=== PATIENT | male | born 1970 | race Caucasian/White ===

== ENCOUNTER → 2024-08-11 | Outpatient (CLI) | payer MEDICARE ==
[~2024-08-11] MED LIST: ALPR1TAB10 PO; BUSP10TA3 PO; CETI10TA57 PO; CYCL-309 PO; DAPS100T PO; DIVA-76 PO; DOCU100C33 PO; DRON10CA8 PO; LAMO100T66 PO; LITH300T3 PO; LITH600C PO; MEMA5TAB16 PO; METF-444 PO; MODA200T48 PO; PHEN-615 PO; PREG50CA64 PO; TAMS-1 PO; TRAZ-187 PO; ZALE10CA26 PO
[2024-08-11 14:50] LABS: CREATININE 0.8 mg/dL (0.5-1.3)
== END | disposition home or self-care (01) ==
LOC: LAB 13:32
PROVIDERS: ATTEND Internal Medicine Gastroenterology
DX: R10.30 Lower abdominal pain, unspecified (principal)
CPT/HCPCS: 36415; 82565; 84520

== ENCOUNTER → 2024-08-24 | Outpatient (CLI) | payer MEDICARE ==
[~2024-08-24] MED LIST changes: +IOHEXOL-350 75 ML VIAL IV ONE
--- NOTE | 2024-08-24 13:06 | HMCIMG ---
CT ABDOMEN/PELVIS W/WO CONTRAS REASON: LOWER ABDO PAIN COMPARISON: 06/08/2016. TECHNIQUE: Images are obtained from lung bases to symphysis pubis before and after IV contrast, 75 cc Omnipaque [id number]. Oral contrast was demonstrated as well. FINDINGS: Lung bases are clear. There are no focal liver lesions. There are normal-appearing kidneys.. Spleen and pancreas appear unremarkable. The gallbladder appears normal as well. Bowel loops appear unremarkable. This includes normal appearance of the appendix There is no evidence of free fluid or intraperitoneal air. There are no focal fluid collections. Aorta and retroperitoneum appear normal as do pelvic soft tissue structures. The anterior abdominal wall is intact. Osseous structures appear unremarkable. IMPRESSION: 1. Negative postcontrast CT abdomen and pelvis. CT was performed with one or more following dose reduction techniques: automated exposure control, adjustment of the mA and kv according to patient's size, or use of a iterative reconstruction technique.
== END | disposition home or self-care (01) ==
LOC: RAH 09:36
PROVIDERS: ATTEND Internal Medicine Gastroenterology
DX: R10.30 Lower abdominal pain, unspecified (principal)
CPT/HCPCS: 74178; Q9967

== ENCOUNTER → 2025-02-17 | Outpatient (CLI) | payer MEDICARE ==
[~2025-02-17] MED LIST changes: +DRON10CA PO; -DRON10CA8 PO; +IBUP-2077 PO; -IOHEXOL-350 75 ML VIAL IV ONE; -PHEN-615 PO; +PHEN37.599 PO; -TAMS-1 PO; +TAMS-55 PO
--- NOTE | 2025-02-17 14:07 | HMCIMG ---
CT ABDOMEN/PELVIS W/O CONTRAST REASON: LEFT INGUINAL PAIN, Other specified disorders of the male genital organs COMPARISON: None. FINDINGS: Lung bases are clear. There are no focal liver lesions. There are normal-appearing kidneys.. The small nonobstructing calculus in the midpole the right kidney. Spleen and pancreas appear unremarkable. The gallbladder appears normal as well. Bowel loops appear unremarkable. There are occasional diverticulosis with no evidence of diverticulitis.. This includes normal appearance of the appendix There is no evidence of free fluid or intraperitoneal air. There are no focal fluid collections. Aorta and retroperitoneum appear normal as do pelvic soft tissue structures. The anterior abdominal wall is intact. Osseous structures appear unremarkable. The prostate and seminal vesicle appears to be normal with no mass or free fluid seen.. There is no evidence of any inguinal hernia or mass identified. IMPRESSION: 1. Negative noncontrast CT abdomen and pelvis. 2. Scattered diverticulosis with no evidence of diverticulitis. CT was performed with one or more following dose reduction techniques: automated exposure control, adjustment of the mA and kv according to patient's size, or use of a iterative reconstruction technique.
== END | disposition home or self-care (01) ==
LOC: RAH 12:18
PROVIDERS: ATTEND Family Medicine
DX: N20.0 Calculus of kidney (principal); K57.90 Diverticulosis of intestine, part unspecified, without perforation or abscess without bleeding; N50.89 Other specified disorders of the male genital organs
CPT/HCPCS: 74176

== ENCOUNTER 2025-02-18 16:56 | Emergency (ER) | payer MEDICARE, MEDICAID ==
[~2025-02-18] VITALS: Ht 180.3 cm; Wt 84.9 kg
[~2025-02-18 16:56] MED LIST changes: -IBUP-2077 PO
--- NOTE | 2025-02-18 17:06 | ERN ---
ED Note History of Present Illness Stated Complaint: TESTICULAR PAIN Chief Complaint: Testicular Injury/Pain Time Seen by MD: 16:59 Dictation: PATIENT IS A 54-YEAR-OLD MALE COMING IN COMPLAINTS OF WORSENING LEFT TESTICULAR PAIN TENDERNESS FOR ONE WEEK. NO FEVER NO CHILLS NO NAUSEA VOMITING. STATES HE SAW HIS PRIMARY CARE DOCTOR ON THURSDAY WHO SENT HIM FOR A CAT SCAN HOWEVER THEY WERE NOT HAVE THE RESULTS UNTIL NEXT WEEK AND HE GOT CONCERNED BECAUSE THE PAIN IS GETTING WORSE. HE DENIES ANY DISCHARGE NO CHANGE IN URINATION. Allergies: Coded Allergies: No Known Drug Allergies (Unverified Allergy, Unknown, 12/22/15) Home Meds Reported Medications Zaleplon (Zaleplon) 10 Mg Capsule, 10 MG PO HS, CAP 02/08/24 Trazodone HCl (Trazodone HCl) 100 Mg Tablet, 100 MG PO HS, TAB 02/08/24 Tamsulosin HCl (Flomax) 0.4 Mg Cap.er.24h, 0.4 MG PO DAILY, CAPSULE.DR 02/08/24 Pregabalin (Pregabalin) 50 Mg Capsule, 50 MG PO A0ONAPT, CAP 02/08/24 Phentermine HCl (Phentermine HCl) 37.5 Mg Capsule, 37.5 MG PO QODAY, CAP 02/08/24 Modafinil (Modafinil) 200 Mg Tablet, 200 MG PO DAILY, TAB 02/08/24 Metformin HCl (Metformin HCl) 500 Mg Tablet, 500 MG PO BID, TAB 02/08/24 Memantine HCl (Memantine HCl) 5 Mg Tablet, 5 MG PO BID, TAB 02/08/24 Rotonda Carbonate (Rotonda Carbonate) 300 Mg Tablet.er, 300 MG PO HS, TAB 02/08/24 Rotonda Carbonate (Rotonda Carbonate) 600 Mg Capsule, 600 MG PO AM, CAP 02/08/24 Lamotrigine (Lamotrigine) 100 Mg Tab.er.24, 100 MG PO QODAY 02/08/24 Dronabinol (Dronabinol) 10 Mg Capsule, 10 MG PO BID, CAP 24 Docusate Sodium (Docusate Sodium) 100 Mg Capsule, 100 MG PO BID, CAP 24 Divalproex Sodium (Divalproex Sodium) 250 Mg Tablet.dr, 250 MG PO BID, TAB 7/15/24 Dapsone (Dapsone) 100 Mg Tablet, 100 MG PO DAILY, TAB 02/08/24 Cyclobenzaprine HCl (Cyclobenzaprine HCl) 10 Mg Tablet, 10 MG PO DAILY, TAB 02/08/24 Cetirizine HCl (Cetirizine HCl) 10 Mg Tablet, 10 MG PO DAILY, TAB 02/08/24 Buspirone HCl (Buspirone HCl) 10 Mg Tablet, 20 MG PO AMNOON, TAB 02/08/24 Buspirone HCl (Buspirone HCl) 10 Mg Tablet, 10 MG PO HS, TAB 02/08/24 Alprazolam (Alprazolam ER) 1 Mg Tab.er.24h, 1 MG PO TID, TAB 12/23/15 Past Medical History Past Medical History: HIV Surgical History: None RN Note Reviewed/Agreed w/PFSH: Yes Review of System Dictation CONSTITUTIONAL: NEGATIVE EXCEPT FOR HPI HEAD/FACE: NEGATIVE EXCEPT FOR HPI EENT: NEGATIVE EXCEPT FOR HPI RESPIRATORY: NEGATIVE EXCEPT FOR HPI GASTROINTESTINAL/ABDOMINAL: NEGATIVE EXCEPT FOR HPI GENITOURINARY: NEGATIVE EXCEPT FOR HPI LEFT TESTICULAR PAIN SWELLING FOR ONE WEEK MUSCULOSKELETAL: NEGATIVE EXCEPT FOR HPI INTEGUMENTARY: NEGATIVE EXCEPT FOR HPI NEUROLOGICAL/PSYCH: NEGATIVE EXCEPT FOR HPI HEMATOLOGIC/LYMPHATIC: NEGATIVE EXCEPT FOR HPI ALL SYSTEMS NEGATIVE, EXCEPT NOTED ABOVE. 13 POINT REVIEW OF SYSTEMS ASSESSED AND ALL NEGATIVE EXCEPT FOR ABOVE. Initial Vital Sign VS Vital Signs Date Time Temp Pulse Resp B/P (MAP) Pulse Ox O2 Delivery O2 Flow Rate FiO2 02/18/25 16:58 98.1 77 18 146/91 98 Room Air 0 02/18/25 17:02 21 Physical Exam Dictation VITAL SIGNS REVIEWED GENERAL APPEARANCE: ALERT, ORIENTED X 3, MILD ACUTE DISTRESS, WELL DEVELOPED, NOURISHED. HEAD AND FACE: NON-TRAUMATIC. EYES: PERRL, PINK CONJUNCTIVAS, EYELID NO TRAUMA, ANTERIOR CHAMBER WITH ARCUS SENILIS. EARS: PINNAS INTACT AND NO SIGNS OF TRAUMA OR ERYTHEMA EAR CANALS CLEAR AND NO DISCHARGE TM NO ERYTHEMA NOSE: NO DISCHARGE, NO BLEEDING. OROPHARYNX: MOUTH NORMAL, TONGUE PINK, PHARYNX CLEAR,NO ERYTHEMA, TONSILS NO EXUDATES, NO ABSCESSES NOTED, MUCOUS MEMBRANE MOIST NECK: SUPPLE, NON-TENDER, NO THYROMEGALY, NO MASSES, NO JVD, NO BRUITS BREAST:DEFERRED CHEST:NO TENDERNESS, NO CREPITUS, NO PARADOXICAL MOVEMENT, NO RETRACTIONS LUNGS:CLEAR, WELL-VENTILATED, SYMMETRIC, NO RALES, NO WHEEZING, NO RHONCHI, NO STRIDOR, GOOD BREATH SOUNDS BILATERALLY HEART: REGULAR RATE, REGULAR RHYTHM, NO MURMUR, NO GALLOPS VASCULAR: NO PERIPHERAL EDEMA, ABDOMEN: SOFT, POSITIVE BOWEL SOUNDS, NONDISTENDED, NO GUARDING, NONTENDER, NO REBOUND, NO MASSES NO HEPATOMEGALY, NO SPLENOMEGALY, NO BRIDGES'S SIGN, NO HERNIAS. RECTAL: DEFERRED GENITAL: DEFERRED NEUROLOGICAL: NORMAL SPEECH, MOTOR FUNCTION INTACT, SENSORY FUNCTION INTACT MUSCULOSKELETAL: NECK NONTENDER, FULL RANGE OF MOTION, BACK NONTENDER, FULL RANGE OF MOTION, EXTREMITIES: NONTENDER, FULL RANGE OF MOTION SKIN: COLOR PINK, DRY, NO TURGOR, NO RASH, NO LACERATIONS, NO ABRASIONS, NO CONTUSIONS. LYMPHATIC: DEFERRED Results (Laboratory/Radiology) Laboratory/Radiology Laboratory Tests Test 02/18/25 17:34 02/18/25 17:58 White Blood Count 8.6 K/uL (4.8-10.8) Red Blood Count 5.19 MIL/uL (4.50-6.20) Hemoglobin 16.0 g/dL (14.0-18.0) Hematocrit 47.6 % (42-54) Mean Corpuscular Volume 91.7 fL (79-99) Mean Corpuscular Hemoglobin 30.8 pg (27.0-33.0) Mean Corpuscular Hemoglobin Concent 33.6 g/dL (32.0-36.0) Red Cell Distribution Width 12.5 % (11.0-15.5) Platelet Count 267 K/uL (130-400) Mean Platelet Volume 9.5 fL (7.5-10.5) Immature Granulocyte % (Auto) 0.5 % (0-1) Neutrophils (%) (Auto) 71.0 % (40.0-77.0) Lymphocytes (%) (Auto) 20.2 % (21.0-51.0) L Monocytes (%) (Auto) 6.4 % (3.0-13.0) Eosinophils (%) (Auto) 1.8 % (0.0-8.0) Basophils (%) (Auto) 0.1 % (0.0-5.0) Neutrophils # (Auto) 6.1 K/uL (1.8-7.7) Lymphocytes # (Auto) 1.7 K/uL (1.0-4.8) Monocytes # (Auto) 0.6 K/uL (0.1-1.0) Eosinophils # (Auto) 0.15 K/uL (0.00-0.70) Basophils # (Auto) 0.01 K/uL (0.00-0.20) Absolute Immature Granulocyte (auto 0.04 K/uL (0-1) Nucleated Red Blood Cells 0.0 % (0.0-0.19) Sodium Level 137 mmol/L (136-145) Potassium Level 4.2 mmol/L (3.5-5.1) Chloride Level 100 mmol/L (101-111) L Carbon Dioxide Level 29 mmol/L (21-32) Blood Urea Nitrogen 14 mg/dL (7-18) Creatinine 1.0 mg/dL (0.5-1.3) Glomerular Filtration Rate Calc 90 mL/min (>90) Random Glucose 101 mg/dL (70-105) Total Calcium 10.1 mg/dL (8.5-10.1) Urine Color YELLOW (YELLOW) Urine Appearance CLEAR (CLEAR) Urine pH 6.5 (5.0-8.0) Urine Specific Morse 1.032 (1.001-1.031) Urine Protein 70 mg/dL (NEGATIVE) H Urine Glucose (UA) NEGATIVE mg/dL (NEGATIVE) Urine Ketones 20 mg/dL (NEGATIVE) H Urine Occult Blood +- (TRACE) (NEGATIVE) H Urine Nitrate NEGATIVE (NEGATIVE) Urine Bilirubin 0.5 mg/dL (NEGATIVE) H Urine Urobilinogen 3 mg/dL (0.2-1.0) H Urine Leukocyte Esterase NEGATIVE Megan/uL Urine RBC 11-25 /HPF (0-1) H Urine WBC 2-5 /HPF (0-1) H Urine Squamous Epithelial Cells RARE /HPF (0-2) Urine Bacteria RARE /HPF (None Seen) Urine Hyaline Casts 6-10 /LPF (0-1 /LPF) H Urine Other Casts 3 /LPF (None Seen) 1745/SCROTAL ULTRASOUND DEMONSTRATES POSITIVE FLOW TO BOTH TESTICLES, PATIENT HAS A EVIDENCE OF A HYDROCELE. BILATERALLY NO EPIDIDYMITIS NO MASSES EXAM: US Scrotum. CLINICAL HISTORY: lt test pain x 1 week TECHNIQUE: Real-time ultrasound of the scrotum with color Doppler and image documentation. COMPARISON: None provided. FINDINGS: RIGHT TESTICLE: Normal in size and echogenicity, no abnormal mass, measures 4.2 x 2.3 x 2.4 cm. Normal Doppler flow. LEFT TESTICLE: Normal in size and echogenicity, no abnormal mass, measures 3.8 x 2.5 x 2.2 cm. Normal Doppler flow. EPIDIDYMIDES: The epididymis are normal in size and demonstrate Doppler flow within normal limits. The right epididymis measures 6 x 2 x 5 mm. The left epididymis measures 6 x 3 x 5 mm. SCROTUM: Bilateral small hydrocele. No varicocele, or extratesticular mass. Unremarkable. IMPRESSION: 1. No acute scrotal findings. 2. Bilateral small hydrocele. /[facility] Reviewed?: Yes ED Course ED Course Orders Procedure Category Date Status Time Us Scrotum & Contents US 02/18/25 Resulted 17:02 Cbc With Differential LAB 02/18/25 Complete 17:02 Urinalysis Profile LAB 02/18/25 Complete 17:02 Basic Metabolic Panel LAB 02/18/25 Complete 17:02 Ibuprofen 800 Mg Tab PHA 02/18/25 In Process (Motrin) 17:30 Current Medications Medications (Trade) Dose Ordered Sig/Rubin Route PRN Reason Start Time Stop Time Status Last Admin Dose Admin Ibuprofen (moTRIN) 800 mg ONCE PO 02/18/25 17:30 02/18/25 22:30 Vital Signs Date Time Temp Pulse Resp B/P (MAP) Pulse Ox O2 Delivery O2 Flow Rate FiO2 02/18/25 18:05 98.1 75 16 145/85 98 Room Air* 0 21 02/18/25 17:02 98.1 77 18 146/91 98 Room Air* 0 21 02/18/25 16:58 98.1 77 18 146/91 98 Room Air 0 1830/PATIENT WILL BE DISCHARGED HOME WITH BILATERAL HYDROCELES. HE WILL BE GIVEN IBUPROFEN FOR PAIN AND TOLD TO FOLLOW UP WITH IN THE NEXT COUPLE OF DAYS CALL FOR AN APPOINTMENT. Medical Decision Making MDM MDM: DIFFERENTIAL DIAGNOSIS: EPIDIDYMITIS/TORSION/ELECTROLYTE IMBALANCE/DEHYDRATION/UTI/HYDROCELE RATIONALE: TESTS CONSIDERED AND ORDERED SECONDARY TO SHARED DECISION MAKING INCLUDE: PREVIOUS OUTSIDE RECORDS REVIEWED: OLD ER VISITS. RISK OF COMPLICATION AND/OR MORBIDITY OR MORTALITY OF PATIENT MANAGEMENT: NONE MEDICATIONS-PER MEDICATION RECONCILIATION NEED FOR HOSPITALIZATION: PATIENT DOES NOT MEET CRITERIA FOR HOSPITALIZATION. ULTRASOUNDS/LABS NEED FOR EMERGENCY MAJOR/MINOR SURGERY: NO THERE ARE NO SOCIAL CONCERNS WITH THIS PATIENT. PRESCRIPTION DRUG MANAGEMENT IBUPROFEN PRESCRIPTIONS WILL INCLUDE SYMPTOMATIC CARE PATIENT'S PRIOR EXTERNAL MEDICAL RECORDS FROM OTHER ER VISITS WERE REVIEWED BY ME INDICATED. PRIOR TESTING AND RESULTS FROM PREVIOUS VISITS WERE REVIEWED. PRIOR TESTS WERE TAKEN INTO ACCOUNT WITH MEDICAL DECISION MAKING AND RESOURCE UTILIZATION, INDEPENDENT HISTORIAN/HISTORIANS WERE USED TO OBTAIN COMPLETE MEDICAL HISTORY. I INDEPENDENTLY INTERPRETED THE TEST THAT WERE PERFORMED, RESULTS WERE REVIEWED BY ME AND CONSIDERED FINDINGS ON RADIOLOGY IF ORDERED. MEDICAL MANAGEMENT AND EXAMINATION INTERPRETATION DISCUSSIONS WERE HAD BY ME WITH OTHER QUALIFIED HEALTHCARE PROFESSIONALS INDICATED FOR THE PATIENT'S CARE. DX & DISP Disposition: Discharge Departure Impression: Primary Impression: Bilateral hydrocele Additional Impression: Left testicular pain Condition: Stable Scripts Ibuprofen (Ibuprofen 800 mg Tab) 800 Mg Tab 800 MG PO Q8H PRN for fever or pain, #30 TAB 0 Refills Prov: LUNA GAVIRIA NP 02/18/25 Additional Instructions: FOLLOW-UP WITH PRIMARY CARE PROVIDER IN 1 TO 2 DAYS. TAKE MEDICATIONS DIRECTED HERE IN THE EMERGENCY ROOM. OKAY TO CONTINUE HOME MEDICATIONS UNLESS OTHERWISE DISCUSSED DURING YOUR VISIT IN THE EMERGENCY ROOM TODAY. RETURN TO YOUR NEAREST EMERGENCY ROOM IF SYMPTOMS WORSEN OR IF THERE IS NO IMPROVEMENT. CALL 911 IF YOU NEED IMMEDIATE ASSISTANCE. TAKE TYLENOL OR MOTRIN [id number] NEEDED AND IF NO CONTRAINDICATIONS ARE PRESENT. INCREASE ORAL HYDRATION. A WOUND CULTURE OR URINE CULTURE WAS ORDERED HERE IN THE EMERGENCY ROOM DEPARTMENT PLEASE FOLLOW-UP WITH PRIMARY CARE PROVIDER AND ADVISE THEM TO GET REPEAT PORTS FROM OUR FACILITY. IF YOU HAD ANY JEWELL WRAP/SPLINTS THAT WERE APPLIED HERE, PLEASE DO NOT REMOVE THEM UNTIL YOU SEE YOUR PRIMARY CARE OR SPECIALTY. TAKE IBUPROFEN NEEDED FOR PAIN, FOLLOW UP WITH THE UROLOGIST IN THE NEXT 1-2 DAYS CALL FOR AN APPOINTMENT. Referrals: ELIZA RUANO MD (PCP) BOOKER YOST MD Time of Disposition: 18:33 I have reviewed the case, and I agree with, Diagnosis and Plan LUNA GAVIRIA NP Feb 18, 2025 17:06
[2025-02-18 17:40] LABS: IMMATURE GRANULOCYTE ABSOLUTE 0.04 K/uL (0-1); NUCLEATED RED BLOOD CELLS 0.0 % (0.0-0.19); PLATELET COUNT (AUTO) 267 K/uL (130-400); RED BLOOD CELL COUNT(AUTO) 5.19 MIL/uL (4.50-6.20); RED CELL DISTRIBUTION WIDTH 12.5 % (11.0-15.5); WHITE BLOOD COUNT (AUTO) 8.6 K/uL (4.8-10.8)
[2025-02-18 17:52] LABS: CREATININE 1.0 mg/dL (0.5-1.3); GLOMERULAR FILTR. RATE CALC 90.0 mL/min (>90); GLUCOSE,RANDOM 101.0 mg/dL (70-105); SODIUM SERUM 137.0 mmol/L (136-145); UREA NITROGEN, BLOOD 14.0 mg/dL (7-18)
--- NOTE | 2025-02-18 17:55 | HMCIMG ---
EXAM: US Scrotum. CLINICAL HISTORY: lt test pain x 1 week TECHNIQUE: Real-time ultrasound of the scrotum with color Doppler and image documentation. COMPARISON: None provided. FINDINGS: RIGHT TESTICLE: Normal in size and echogenicity, no abnormal mass, measures 4.2 x 2.3 x 2.4 cm. Normal Doppler flow. LEFT TESTICLE: Normal in size and echogenicity, no abnormal mass, measures 3.8 x 2.5 x 2.2 cm. Normal Doppler flow. EPIDIDYMIDES: The epididymis are normal in size and demonstrate Doppler flow within normal limits. The right epididymis measures 6 x 2 x 5 mm. The left epididymis measures 6 x 3 x 5 mm. SCROTUM: Bilateral small hydrocele. No varicocele, or extratesticular mass. Unremarkable. IMPRESSION: 1. No acute scrotal findings. 2. Bilateral small hydrocele. /[place]
[2025-02-18 18:05] VITALS: BP 145/85; PULSE 75; RESP 16; TEMP 98.1; O2SAT 98
[2025-02-18 18:20] LABS: APPEARANCE,URINE CLEAR (CLEAR); GLUCOSE, URINE (UA) NEGATIVE (NEGATIVE); LEUKOCYTE ESTERASE ,URINE NEGATIVE Leu/uL (NEGATIVE); NITRATE,URINE NEGATIVE (NEGATIVE); OCCULT BLOOD,URINE +- (TRACE) (NEGATIVE)
[2025-02-18 18:26] LABS: ADD UA MICROSCOPIC YES
[2025-02-18 18:28] LABS: OTHER CASTS, URINE 3 /LPF (None Seen); SQUAMOUS EPITHELIAL CELL,UR RARE /HPF (0-2)
[2025-02-18] MEDS ORDERED: IBUP-2077 PO (18:33)
== END 2025-02-18 18:45 | disposition home or self-care (01) ==
LOC: EDH 16:56
DX: N43.3 Hydrocele, unspecified (principal); Z79.899 Other long term (current) drug therapy
CPT/HCPCS: 36415; 76870; 80048; 81001; 85025; 99284